=== PATIENT | female | born 1990 | race African-American/Black ===

== ENCOUNTER 2016-11-13 12:38 | Emergency (ER) | payer OTHER ==
[~2016-11-13] VITALS: Ht 172.7 cm; Wt 90.0 kg
[2016-11-13 18:24] LABS: UA SPECIFIC GRAVITY 1.015 (1.005-1.035); microscopic required? YES; urine erythrocyte NEGATIVE (NEGATIVE)
[2016-11-13 20:20] VITALS: BP 128/89
== END 2016-11-13 20:20 | disposition home or self-care (01) ==
LOC: ED 12:38
PROVIDERS: Emergency Medicine
DX: N76.0 Acute vaginitis (principal); B96.89 Other specified bacterial agents as the cause of diseases classified elsewhere; R51 Headache; R11.0 Nausea; M79.604 Pain in right leg; M79.605 Pain in left leg
CPT/HCPCS: 87491; 87591; J0696; J1885